=== PATIENT | female | born 1945 | race Caucasian/White ===

== ENCOUNTER 2021-12-31 12:03 | Outpatient (CLI) | payer MEDICARE, SELFPAY | END 2021-12-31 12:04 | disposition home or self-care (01) | LOC: LKVREF 12:05 | PROVIDERS: PCP Physician Assistant Medical; Visit Provider Physician Assistant Medical | DX: R79.89 Other specified abnormal findings of blood chemistry (principal); R51.9 Headache, unspecified; R42 Dizziness and giddiness; I65.29 Occlusion and stenosis of unspecified carotid artery | CPT/HCPCS: 84443 ==

== ENCOUNTER 2022-01-09 14:09 | Outpatient (CLI) | payer MEDICARE, SELFPAY ==
--- NOTE | 2022-01-09 14:30 | MR_ITS ---
Final Report Patient: HORTENCIA FARIAS Facility:?[facility] Patient ID:?[id number] Site Patient ID:?[id number]. Site :?[id number] Study:?MRI Head MRA W/O-01/09/2022 4:01:23 PM Ordering Physician:?Rosie Hernandez Final Report: INDICATION: Headaches. TECHNIQUE: 3D qxae-ug-vpiffr magnetic resonance angiography of the head with 3D MIP reconstructions provided. COMPARISON: None. FINDINGS: No proximal large vessel occlusion. The anterior cerebral arteries are patent. The middle cerebral arteries are patent. The posterior cerebral arteries are patent. The intradural vertebral arteries and basilar artery are patent. The intracranial internal carotid arteries are patent. No aneurysm or high flow vascular malformation. IMPRESSION: IMPRESSION 1. Normal appearance of the intracranial arterial circulation, with no proximal large vessel occlusion, flow limiting stenosis or other vascular abnormality. Dictated by Jose C Schwartz MD @ 01/09/2022 7:24:13 PM (Electronic Signature)
--- NOTE | 2022-01-09 14:30 | CRLHL7_ITS ---
For Patients: As a result of the Century Cures Act, medical imaging exams and procedure reports are released immediately into your electronic medical record. You may view this report before your referring provider. If you have questions, please contact your health care provider. INDICATION: Headaches. TECHNIQUE: 3D time-of flight and gadolinium bolus magnetic resonance angiography of the neck with 3D MIP reconstructions provided. All measurements are based on NASCET criteria. 20 cc of Dotarem. COMPARISON : None. FINDINGS: There is a 3 vessel configuration of the aortic arch. The brachiocephalic artery is patent. There is mild stenosis of the right subclavian artery origin. There is near complete occlusion of the left subclavian artery origin. The common carotid arteries are patent. Mild, slightly less than 50 percent stenosis of the right internal carotid artery origin. Right internal carotid beyond the origin is patent. Mild, 30-40 percent stenosis of the left carotid bulb/internal carotid artery origin. Moderate stenosis of the left external carotid artery origin. Presumed reversed flow within the left cervical vertebral artery segment on the qyvv-ef-dsetmo sequence. Left vertebral artery beyond the origin is patent. Right vertebral artery is patent. IMPRESSION: 1. 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 Correlate for subclavian steal syndrome. 2. Mild bilateral internal carotid artery origin stenosis, slightly greater on the right. Dictated by Jose C Schwartz MD @ 01/09/2022 7:30:07 PM (Electronically Signed)
--- NOTE | 2022-01-09 15:30 | CRLHL7_ITS ---
For Patients: As a result of the Century Cures Act, medical imaging exams and procedure reports are released immediately into your electronic medical record. You may view this report before your referring provider. If you have questions, please contact your health care provider. Final Report: ----ADDENDUM---- CORRECTION TO TECHNIQUE: Brain MRI without and with contrast, 20 cc Dotarem. INDICATION: Headaches. TECHNIQUE: Brain MRI with contrast. The following sequences were obtained: Sagittal T1 weighted sequence. DWI and ADC mapping sequences. Axial FLAIR and MANJINDER T2 weighted sequences. T1 weighted post-contrast sequence(s). 20 cc of Dotarem gadolinium based contrast agent was used. COMPARISON: Brain MRI from 07/20/2020 FINDINGS: No evidence of acute ischemia. No evidence of acute or chronic intracranial blood products. No mass or pathologic intracranial enhancement. Few small FLAIR hyperintensities scattered within the supratentorial white matter, typical for chronic microvascular ischemic change. No hydrocephalus or extra-axial collections. The pituitary gland, parasellar structures and optic chiasm are normal. Posterior fossa is normal. All the major intracranial vascular structures demonstrate normal flow-related signal. The orbital contents are normal. No calvarial or skull base marrow signal abnormality. No obstructive sinus disease. No extracranial soft tissue findings. IMPRESSION: 1. No acute infarction or other acute intracranial pathology. 2. No mass or pathologic intracranial enhancement. 3. Scattered chronic microvascular ischemic changes within the supratentorial white matter. Dictated by Jose C Schwartz MD @ 01/09/2022 7:20:40 PM (Electronic Signature)
== END 2022-01-09 14:10 | disposition home or self-care (01) ==
PROVIDERS: PCP Physician Assistant Medical; Visit Provider Physician Assistant Medical
DX: R51.9 Headache, unspecified (principal)
CPT/HCPCS: 70544; 70549; 70553; A9575

== ENCOUNTER 2022-03-15 06:55 | Outpatient (CLI) | payer MEDICARE, SELFPAY ==
--- NOTE | 2022-03-15 11:13 | W.ANESCHARGE ---
Anesthesia Charges Start Date/Time Anesthesia Start Date: 03/15/22 Anesthesia Start Time: 07:39 Stop Date/Time Anesthesia Stop Date: 03/15/22 Anesthesia Stop Time: 08:20 Summary Emergency: No Extremes of Age: Over 71-CPT 02111
--- NOTE | 2022-03-15 11:55 | W.ANESCHARGE ---
Anesthesia Charges Start Date/Time Anesthesia Start Date: 03/15/22 Anesthesia Start Time: 07:39 Stop Date/Time Anesthesia Stop Date: 03/15/22 Anesthesia Stop Time: 08:20 Summary Emergency: No Extremes of Age: Over 71-CPT 51144
== END 2022-03-15 06:56 | disposition home or self-care (01) ==
LOC: OP CLINIC 06:57
PROVIDERS: PCP Physician Assistant Medical; Visit Provider Internal Medicine
DX: Z12.11 Encounter for screening for malignant neoplasm of colon (principal); K63.5 Polyp of colon; K57.30 Diverticulosis of large intestine without perforation or abscess without bleeding; R19.8 Other specified symptoms and signs involving the digestive system and abdomen
CPT/HCPCS: 00811; 00813; 43239; 45380; 88305; 99100; J2704

== ENCOUNTER 2022-09-12 09:27 | Outpatient (CLI) | payer MEDICARE, SELFPAY | END 2022-09-12 09:28 | disposition home or self-care (01) | LOC: NFLDREF 09-13 00:19 | PROVIDERS: PCP Physician Assistant Medical; Referring Provider Physician Assistant Medical; Visit Provider Physician Assistant Medical | DX: E78.5 Hyperlipidemia, unspecified (principal) | CPT/HCPCS: 80061 ==

== ENCOUNTER 2022-12-13 08:53 | Outpatient (CLI) | payer MEDICARE, SELFPAY | END 2022-12-13 08:54 | disposition home or self-care (01) | LOC: NFLDREF 12-15 06:39 | PROVIDERS: PCP Physician Assistant Medical; Referring Provider Physician Assistant Medical; Visit Provider Physician Assistant Medical | DX: E78.5 Hyperlipidemia, unspecified (principal); M79.10 Myalgia, unspecified site | CPT/HCPCS: 80076; 82550 ==

== ENCOUNTER 2023-01-15 10:23 | Outpatient (CLI) | payer MEDICARE, SELFPAY ==
--- NOTE | 2023-01-15 11:00 | CRLHL7_ITS ---
For Patients: As a result of the Century Cures Act, medical imaging exams and procedure reports are released immediately into your electronic medical record. You may view this report before your referring provider. If you have questions, please contact your health care provider. Indication: LEFT UPPER QUAD AND SIDE PAIN Technique: Postcontrast CT abdomen and pelvis. 44 cc Isovue 370 intravenous contrast. Please note that all CT scans at this facility use dose modulation, iterative reconstruction, and/or weight-based dosing when appropriate to reduce radiation dose to as low as reasonably achievable. Comparison: None Findings: Mild scarring at the linear subsegmental scarring left lower lobe. No pleural effusion. Pectus deformity. No free air. Extensive atherosclerotic changes within the aorta. Kidneys are normal. Normal adrenal glands. 8 millimeters cyst within the posterior spleen. Normal pancreas. No intrahepatic mass. Gallbladder is normal. A focus of fat deposition within the liver adjacent to falciform ligament. Incidental splenule. Bladder normal. No pelvic soft tissue mass. Trace pelvic free fluid is considered incidental. No bowel obstruction or inflammatory change. No compression fracture. Degenerative disc disease L5-S1. Diverticulosis. Increased stool. Impression: Sigmoid diverticulosis and increased stool within the redundant colon. This may suggest constipation. No bowel obstruction or inflammatory change. Please note that all CT scans at this facility use dose modulation, iterative reconstruction, and/or weight-based dosing when appropriate to reduce radiation dose to as low as reasonably achievable. Dictated by Bernardo Austin MD @ 01/15/2023 4:00:47 PM (Electronically Signed)
[2023-01-15 11:03] LABS: Creatinine* 0.9 mg/dL (0.5-1.5); Estimated Glomerular Filt Rate 66 ml/min
== END 2023-01-15 10:24 | disposition home or self-care (01) ==
LOC: CT 10:24
PROVIDERS: PCP Physician Assistant Medical; Visit Provider Physician Assistant Medical
DX: R10.12 Left upper quadrant pain (principal); K57.30 Diverticulosis of large intestine without perforation or abscess without bleeding
CPT/HCPCS: 36415; 74177; 82565; Q9967

== ENCOUNTER 2023-04-22 08:50 | Outpatient (CLI) | payer MEDICARE, SELFPAY | END 2023-04-22 08:51 | disposition home or self-care (01) | LOC: NFLDREF 04-25 13:24 | PROVIDERS: PCP Physician Assistant Medical; Referring Provider Physician Assistant Medical; Visit Provider Physician Assistant Medical | DX: E78.5 Hyperlipidemia, unspecified (principal) | CPT/HCPCS: 80061 ==

== ENCOUNTER 2023-07-16 16:11 | Outpatient (CLI) | payer MEDICARE, SELFPAY ==
--- NOTE | 2023-07-16 16:30 | CRLHL7_ITS ---
For Patients: As a result of the Century Cures Act, medical imaging exams and procedure reports are released immediately into your electronic medical record. You may view this report before your referring provider. If you have questions, please contact your health care provider. INDICATION: Abdominal pain. TECHNIQUE: CT abdomen and pelvis acquired with 44 cc of Isovue 370 IV contrast. COMPARISON: CT abdomen and pelvis 01/15/2023. FINDINGS: Lower chest: Mild bibasilar scarring or atelectasis. No pleural or pericardial effusions. Pectus deformity, as before. Liver: Unremarkable. Spleen: Stable sub centimeter cyst. Pancreas: Unremarkable. Gallbladder and bile ducts: Unremarkable. Kidneys: No urolithiasis or hydronephrosis. A too small to characterize low-density in the left kidney likely representing incidental cyst is unchanged. Kidneys are otherwise unremarkable. Adrenal glands: Unremarkable. GI tract: There is mild fluid retention within distal small bowel loops. No evidence of high-grade bowel obstruction or focal bowel wall thickening. Distal colonic diverticulosis without evidence of acute diverticulitis. Appendix is not discretely identified. No inflammatory change in the expected region of the appendix. No free air. Miniscule pelvic free-fluid is similar. Vascular structures: Atherosclerotic disease. No abdominal aortic aneurysm. Lymph nodes: Unremarkable. Pelvic Organs: Unremarkable. Bones: No acute or suspicious abnormality. Degenerative changes of the spine and pelvis. IMPRESSION: 1. Fluid retention within small bowel is of uncertain significance but may represent sequela of a nonspecific enteritis. No high-grade bowel obstruction or focal inflammatory change involving the GI tract. 2. Distal colonic diverticulosis without evidence of acute diverticulitis. Dictated by Jp Simon MD @ 07/16/2023 6:19:34 PM Please note that all CT scans at this facility use dose modulation, iterative reconstruction, and/or weight-based dosing when appropriate to reduce radiation dose to as low as reasonably achievable. Dictated by: Jp Simon MD @ 07/16/2023 18:19:47 (Electronically Signed)
[2023-07-16 17:02] LABS: Creatinine* 0.7 mg/dL (0.5-1.5); Estimated Glomerular Filt Rate 89 ml/min
== END 2023-07-16 16:12 | disposition home or self-care (01) ==
LOC: CT 16:11
PROVIDERS: PCP Physician Assistant Medical; Visit Provider Physician Assistant Medical
DX: R10.9 Unspecified abdominal pain (principal); K57.30 Diverticulosis of large intestine without perforation or abscess without bleeding
CPT/HCPCS: 36415; 74177; 80053; 82565; 83690; Q9967

== ENCOUNTER 2024-04-06 14:33 | Outpatient (CLI) | payer MEDICARE, SELFPAY ==
--- NOTE | 2024-04-06 14:45 | CRLHL7_ITS ---
For Patients: As a result of the Century Cures Act, medical imaging exams and procedure reports are released immediately into your electronic medical record. You may view this report before your referring provider. If you have questions, please contact your health care provider. CLINICAL HISTORY: Dizziness and giddiness TECHNIQUE: The carotid circulations and the vertebral arteries in the neck were examined with palma-scale ultrasound, color-flow and Doppler spectral analysis. Degrees of stenosis were determined using SRU 2002 Consensus Panel Criteria. FINDINGS: Sonographic images demonstrate bilateral atherosclerotic plaque formation without suspicious soft tissue mass. Retrograde flow within the left vertebral artery noted, as before. Antegrade flow within the distal left subclavian artery, as before. The spectral Doppler tracings of the common carotid, internal and external carotid arteries demonstrate abnormal turbulence and spectral broadening within the proximal and mid right ICA. There was significant elevation of peak systolic blood flow within the right proximal and mid ICA measuring up to 197 cm/second which would indicate a hemodynamically-significant stenosis by SRU criteria. Mild elevation of peak systolic velocity also present within the proximal left ICA measuring 134 cm/second. The ICA/CCA peak systolic velocity ratio measures 2.5 on the right and 2.3 on the left. IMPRESSION: 50-69 percent stenosis of the internal carotid arteries bilaterally. Chronic retrograde flow within the left vertebral artery. Dictated by Bernardo Austin MD @ 04/07/2024 12:36:15 PM (Electronically Signed)
== END 2024-04-06 14:34 | disposition home or self-care (01) ==
LOC: US 14:35
PROVIDERS: PCP Physician Assistant Medical; Visit Provider Physician Assistant Medical
DX: R42 Dizziness and giddiness (principal); I65.23 Occlusion and stenosis of bilateral carotid arteries
CPT/HCPCS: 93880

== ENCOUNTER 2024-04-16 12:47 | Outpatient (CLI) | payer MEDICARE, SELFPAY ==
--- NOTE | 2024-04-16 13:00 | CRLHL7_ITS ---
For Patients: As a result of the Century Cures Act, medical imaging exams and procedure reports are released immediately into your electronic medical record. You may view this report before your referring provider. If you have questions, please contact your health care provider. INDICATION Dizziness and giddiness. TECHNIQUE: MRI brain: Multiplanar multisequence MR imaging prior to and following intravenous contrast. MRA head: [id number]-lg-vrlamq imaging. MRA neck: Gjjq-rt-khfgdc and postcontrast imaging. COMPARISON: MRI brain and MRA head/neck 01/09/2022. FINDINGS: MRI brain: Mild diffuse cerebral volume loss. No mass effect or midline shift. Stable few punctate FLAIR hyperintensities in the supratentorial white matter, typical for minimal chronic microvascular changes. No pathologic intracranial enhancement. No intracranial hemorrhage or pathologic extra-axial fluid collection. No diffusion restriction to suggest acute infarction. Globes are symmetric. The paranasal sinuses are well aerated. Trace mastoid fluid bilaterally. MRA head: The internal carotid, middle cerebral, and anterior cerebral arteries are widely patent. When interpreted in conjunction with postcontrast images, the vertebral, basilar, and posterior cerebral arteries are widely patent. No intracranial aneurysm or high-flow vascular malformation. MRA neck: Occluded left subclavian artery origin. The innominate and right subclavian artery are widely patent. Mild right and etxz-wb-zlrqqqfa left distal common carotid artery stenosis. Moderate (50-69 percent) proximal right cervical internal carotid artery stenosis slightly worsened. Similar mild (less than 50 percent) proximal left cervical internal carotid artery stenosis. The dominant right vertebral artery is widely patent. Potential left vertebral artery origin stenosis. Reversal of flow within the left vertebral artery, compatible with left subclavian steal. IMPRESSION: MRI brain: 1. No acute intracranial abnormality. No significant change compared to the prior MRI. 2. Mild diffuse cerebral and loss and minimal chronic microvascular ischemic changes. MRA head/neck: 1. Widely patent intracranial vasculature. 2. Moderate (50-69 percent) proximal right cervical internal carotid artery stenosis slightly worsened. Similar mild (less than 50 percent) proximal left cervical internal carotid artery stenosis. 3. Occlusion of the left subclavian artery origin with findings of subclavian steal. This is not significantly changed. Dictated by Del Magdaleno MD @ 04/17/2024 11:35:11 AM (Electronically Signed)
== END 2024-04-16 12:48 | disposition home or self-care (01) ==
LOC: MRI 12:48
PROVIDERS: PCP Physician Assistant Medical; Visit Provider Physician Assistant Medical
DX: R42 Dizziness and giddiness (principal); I65.21 Occlusion and stenosis of right carotid artery; I65.22 Occlusion and stenosis of left carotid artery; I67.2 Cerebral atherosclerosis
CPT/HCPCS: 70544; 70549; 70553; A9575

== ENCOUNTER 2024-08-31 07:58 | Outpatient (CLI) | payer MEDICARE, SELFPAY ==
[2024-08-31] MEDS: SODIUM CHLORIDE 0.9 % (FLUSH) 10 ML SYRINGE IVF (10:19)
[2024-08-31] MEDS: REGADENOSON 0.4 MG/5 ML SYRINGE IVP (10:35)
--- NOTE | 2024-08-31 10:43 | W.PM.STED ---
Stress Test Note Date Date Seen: 08/31/24 Date of test: 08/31/24 Providers Referring provider: Raghavendra Nair Primary care provider: Mary Velez Stress test physician: Shruthi Monahan Stress Test Note Stress test ordered: Lexiscan Indication for test: Chest discomfort, reported abnormal echo Stress test medicine: Lexiscan Results discussion: Resting EKG: Sinus rhythm, 61 beats per minute. There is some artifact this baseline EKG particularly noted in the inferior leads. Resting blood pressure: 139/66 Stress test: Patient is consented on ordered nonwalking Lexiscan, agrees to proceed. She had symptoms of lightheadedness or dizziness, nausea and headache with infusion of the regadenoson but no chest pain. She had some PVCs seen but otherwise no arrhythmia. Patient had no complaints of chest pain during this. Her symptoms did improve by the termination of the test. There was no diagnostic ischemic change noted on the EKG monitoring. Await nuclear images to couple this for a full formal diagnostic. Impression: Subjectively negative, objectively negative EKG portion of this Lexiscan. Follow up suggested: Patient will have post stress images obtained, will discharge to home after that. She currently is in stable condition. She has a follow-up appointment scheduled with cardiology with Dr. Nair per her report. She requests that he be copied with stress test results as well.
[2024-08-31 12:46] VITALS: BP 134/71; PULSE 88
== END 2024-08-31 07:59 | disposition home or self-care (01) ==
LOC: STRESS 07:59
PROVIDERS: PCP Physician Assistant Medical; Visit Provider Physician Assistant Medical
DX: R07.9 Chest pain, unspecified (principal)
CPT/HCPCS: 78452; 93016; 93017; A9500; J2785

== ENCOUNTER 2024-09-01 10:35 | Outpatient (CLI) | payer MEDICARE, SELFPAY ==
--- NOTE | 2024-09-01 10:45 | CRLHL7_ITS ---
For Patients: As a result of the Century Cures Act, medical imaging exams and procedure reports are released immediately into your electronic medical record. You may view this report before your referring provider. If you have questions, please contact your health care provider. INDICATION: Epigastric swelling TECHNIQUE: Conventional two-dimensional grayscale ultrasound of the abdomen. COMPARISON: Abdomen/pelvis CT of 07/16/2023 FINDINGS: No mass is evident. The gallbladder is normal, with no evidence of stones. No gallbladder wall thickening or pericholecystic fluid is demonstrated. The patient is reportedly not tender over the gallbladder. No biliary ductal dilation is evident. The common bile duct measures 4 mm. The liver is normal in size, shape and echogenicity. The spleen is within normal limits. The right kidney is normal. The left kidney is not visualized. The pancreatic parenchyma is grossly negative. The pancreatic duct appears to mildly enlarged to 4 mm in diameter. The visualized portion of the abdominal aorta and inferior vena cava are unremarkable. IMPRESSION: 1. No mass demonstrated. 2. Normal gallbladder bile ducts. Dictated by Abelino Leonardo MD @ 09/02/2024 10:28:56 AM (Electronically Signed)
== END 2024-09-01 10:36 | disposition home or self-care (01) ==
LOC: US 10:35
PROVIDERS: PCP Physician Assistant Medical; Visit Provider Physician Assistant Medical
DX: R19.06 Epigastric swelling, mass or lump (principal)
CPT/HCPCS: 76705

== ENCOUNTER 2024-12-28 12:31 | Outpatient (CLI) | payer MEDICARE, SELFPAY ==
--- NOTE | 2024-12-28 13:00 | CRLHL7_ITS ---
For Patients: As a result of the Century Cures Act, medical imaging exams and procedure reports are released immediately into your electronic medical record. You may view this report before your referring provider. If you have questions, please contact your health care provider. INDICATIONS: Right posterior chest wall pain. COMPARISON: Two-view chest June 10, 2024. TECHNIQUE: CT chest without intravenous contrast; coronal and sagittal reformats. FINDINGS: Normal size cardiac silhouette. Carotid artery calcifications. No evidence of pericardial effusion. No evidence of pleural effusion or chest wall pathology. No pneumothorax or pleural effusion. A 5 mm noncalcified nodular density right lung apex slice 23 series 3. Atelectatic changes left lung base. No abnormalities identified involving the ribcage on either side. The cause for the patient`s clinical symptomatology is not evident on the CT study. Impression: 1. 5 mm noncalcified nodule right lung apex; follow-up chest CT in 1 year suggested. 2. Coronary artery calcifications. 3. Negative CT chest without intravenous contrast otherwise Please note that all CT scans at this facility use dose modulation, iterative reconstruction, and/or weight-based dosing when appropriate to reduce radiation dose to as low as reasonably achievable. Dictated by Rowena Jarquin MD @ 12/30/2024 3:32:28 PM (Electronically Signed)
== END 2024-12-28 12:32 | disposition home or self-care (01) ==
LOC: CT 12:32
PROVIDERS: PCP Physician Assistant Medical; Visit Provider Physician Assistant Medical
DX: R07.89 Other chest pain (principal); R91.8 Other nonspecific abnormal finding of lung field; I25.10 Atherosclerotic heart disease of native coronary artery without angina pectoris; M54.9 Dorsalgia, unspecified; Z87.891 Personal history of nicotine dependence; J44.9 Chronic obstructive pulmonary disease, unspecified; R06.00 Dyspnea, unspecified
CPT/HCPCS: 71250

== ENCOUNTER 2025-02-28 11:40 | Outpatient (CLI) | payer MEDICARE, SELFPAY | END 2025-02-28 11:41 | disposition home or self-care (01) | LOC: NFLDREF 03-03 17:11 | PROVIDERS: PCP Physician Assistant Medical; Referring Provider Physician Assistant Medical; Visit Provider Physician Assistant Medical | DX: E78.5 Hyperlipidemia, unspecified (principal); I10 Essential (primary) hypertension; G47.62 Sleep related leg cramps; R19.06 Epigastric swelling, mass or lump | CPT/HCPCS: 80053; 80061; 84443 ==